=== PATIENT | female | born 1990 | race Caucasian/White ===

== ENCOUNTER 2016-09-17 19:11 | Emergency (ER) | payer MEDICAID ==
[~2016-09-17] VITALS: Ht 157.5 cm; Wt 64.4 kg
[2016-09-17] MEDS ORDERED: IV NS 0.9% 1,000 ML BAG IV ONE (20:00)
[2016-09-17] MEDS ORDERED: IV NS 0.9% 1,000 ML ONE (20:02)
[2016-09-17] MEDS ORDERED: IV SET PRIMARY 1 EA INFUS.SET MC ONE ×2 (20:02→20:09)
[2016-09-17 20:07] LABS: BASOPHILS % (AUTO) 0.2 % (0.0-2.0); EOSINOPHILS # (AUTO) 0.3 /CMM (0.0-0.7); EOSINOPHILS % (AUTO) 2.1 % (0.0-6.0); HEMATOCRIT 41 % (33-45); HEMOGLOBIN 13.7 g/dL (11.5-14.8); LYMPHOCYTES # (AUTO) 2.9 /CMM (0.8-4.8); LYMPHOCYTES % (AUTO) 20.7 % (20.0-44.0); MEAN CORPUSCULAR HEMOGLOBIN 29 PG (26.0-33.0); MEAN CORPUSCULAR HGB CONC 34 g/dl (31.0-36.0); MEAN CORPUSCULAR VOLUME 86 fL (82-100); MONOCYTES # (AUTO) 0.9 /CMM (0.1-1.30); MONOCYTES % (AUTO) 6.6 % (2.0-12.0); NEUTROPHILS # (AUTO) 10.1 /CMM (1.8-8.9); NEUTROPHILS % (AUTO) 70.4 % (43.0-81.0); PLATELET COUNT (AUTO) 251 /CMM (150-450); RDW COEFFICIENT OF VARIATION 12.1 (11.5-15.0); RED BLOOD CELL COUNT(AUTO) 4.73 MIL/uL (4.0-5.2); WHITE BLOOD COUNT (AUTO) 14.2 K/uL (4.3-11.0)
[2016-09-17] MEDS ORDERED: CEFTRIAXONE 1GM BAG (ER ONLY) 50 ML IV ONE (20:09)
[2016-09-17 20:17] LABS: CALCIUM, SERUM 9.3 mg/dL (8.5-10.1); CREATININE 0.6 mg/dL (0.6-1.3); POTASSIUM 3.3 mmol/L (3.5-5.1)
[2016-09-17 20:18] LABS: APPEARANCE,URINE CLEAR (CLEAR); BILIRUBIN,URINE NEGATIVE (NEGATIVE); BLOOD, URINE TRACE Ery/uL (NEGATIVE); KETONES,URINE NEGATIVE (NEGATIVE); LEUKOCYTE ESTERASE ,URINE NEGATIVE (NEGATIVE); NITRITE, URINE NEGATIVE (NEGATIVE); PH,URINE 6.5 (5.0-8.0); PROTEIN,URINE NEGATIVE (NEGATIVE); UGLUCOSE NEGATIVE (NEGATIVE); UROBILINOGEN,URINE 0.2 EU/dL (0.2)
[2016-09-17 20:20] LABS: COLOR,URINE STRAW (YELLOW)
[2016-09-17 20:21] LABS: PREGNANCY TEST URINE QUAL NEGATIVE (NEGATIVE)
[2016-09-17 20:24] LABS: ADD URINE CULTURE NO; BACTERIA,URINE None seen /HPF (None Seen); RBC,URINE 0-2 /HPF (0-2); SQUAMOUS EPITHELIAL CELL,UR Few /HPF (None Seen); WBC,URINE NONE SEEN /HPF (0-3)
[2016-09-17 20:29] LABS: BILIRUBIN,DIRECT 0.1 mg/dL (0.0-0.2); BILIRUBIN,TOTAL 0.4 mg/dL (0.2-1.0); TOTAL PROTEIN, SERUM 8.1 g/dL (6.4-8.2)
[2016-09-17] MEDS ORDERED: CEFTRIAXONE 1GM BAG (ER ONLY) 1 GM/50 ML PIGGYBACK IV ONE (20:30)
[2016-09-17] MEDS ORDERED: ACETAMINOPHEN ES 500 MG TABLET PO ONE (21:00)
[2016-09-17] MEDS ORDERED: ONDANSETRON HCL/PF 4 MG/2 ML VIAL IV ONE (21:00)
--- NOTE | 2016-09-17 21:00 | NUR ---
PT LEFT FOR CT VIA WC.
[2016-09-17] MEDS ORDERED: ACETAMINOPHEN ES 500 MG TABLET ONE (21:25)
[2016-09-17] MEDS ORDERED: ONDANSETRON HCL/PF 4 MG/2 ML VIAL ONE (21:25)
--- NOTE | 2016-09-17 21:25 | NUR ---
PT RETURNED FROM CT.
--- NOTE | 2016-09-17 21:58 | NUR ---
ESTEBAN US TECH AT THE BEDSIDE.
--- NOTE | 2016-09-17 23:09 | NUR ---
IV removed. Catheter intact and site benign. Pressure and 4x4 applied to site. No bleeding noted.Patient discharged to home in stable condition. Written and verbal after care instructions given. Patient verbalizes understanding of instruction. PT TO F/U WITH SECRETARY OF STATE FOR REPEAT US. VSS. PT AMBULATED OUT WITH A STEADY GAIT.
[2016-09-17 23:11] VITALS: BP 104/60
== END 2016-09-17 23:00 | disposition home or self-care (01) ==
LOC: ER 19:14
DX: N12 Tubulo-interstitial nephritis, not specified as acute or chronic (principal)
CPT/HCPCS: 36415; 74176; 76856; 80048; 80076; 81001; 83690; 84443; 84703; 85025; 93005; 96365; 96375; 99285; A4606; J0696; J2405; J7030; Z7610; 81000-TC; 87086-TC

== ENCOUNTER 2017-02-25 19:43 | Emergency (ER) | payer MEDICAID ==
[~2017-02-25] VITALS: Ht 157.5 cm; Wt 63.5 kg
--- NOTE | 2017-02-25 23:37 | NUR ---
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 AOx4 w/ resp even & unlabored, denies any sob, no active N/V at this time w/ nad noted. Pending further elisha taylor MD. Urine sample obtained & sent to lab.
--- NOTE | 2017-02-25 23:41 | NUR ---
Dominick, PRODUCT DEVELOPMENT CHEMIST at bedside for further eval.
--- NOTE | 2017-02-26 00:01 | NUR ---
GUERITA AT BEDSIDE FOR BLOOD DRAW.
[2017-02-26 00:07] LABS: BASOPHILS % (AUTO) 0.1 % (0.0-2.0); EOSINOPHILS # (AUTO) 0.2 /CMM (0.0-0.7); EOSINOPHILS % (AUTO) 2.1 % (0.0-6.0); HEMATOCRIT 41 % (33-45); HEMOGLOBIN 13.5 g/dL (11.5-14.8); LYMPHOCYTES # (AUTO) 2.5 /CMM (0.8-4.8); LYMPHOCYTES % (AUTO) 23.9 % (20.0-44.0); MEAN CORPUSCULAR HEMOGLOBIN 28 PG (26.0-33.0); MEAN CORPUSCULAR HGB CONC 33 g/dl (31.0-36.0); MEAN CORPUSCULAR VOLUME 86 fL (82-100); MONOCYTES # (AUTO) 0.8 /CMM (0.1-1.30); MONOCYTES % (AUTO) 7.6 % (2.0-12.0); NEUTROPHILS # (AUTO) 6.9 /CMM (1.8-8.9); NEUTROPHILS % (AUTO) 66.3 % (43.0-81.0); PLATELET COUNT (AUTO) 209 /CMM (150-450); RDW COEFFICIENT OF VARIATION 13.4 (11.5-15.0); RED BLOOD CELL COUNT(AUTO) 4.76 MIL/uL (4.0-5.2); WHITE BLOOD COUNT (AUTO) 10.4 K/uL (4.3-11.0)
[2017-02-26 00:11] LABS: APPEARANCE,URINE CLEAR (CLEAR); BILIRUBIN,URINE NEGATIVE (NEGATIVE); BLOOD, URINE 1+ Ery/uL (NEGATIVE); COLOR,URINE YELLOW (YELLOW); KETONES,URINE NEGATIVE (NEGATIVE); LEUKOCYTE ESTERASE ,URINE NEGATIVE (NEGATIVE); NITRITE, URINE NEGATIVE (NEGATIVE); PROTEIN,URINE NEGATIVE (NEGATIVE); UGLUCOSE NEGATIVE (NEGATIVE); UROBILINOGEN,URINE 0.2 EU/dL (0.2)
[2017-02-26 00:20] LABS: BACTERIA,URINE None seen /HPF (None Seen); RBC,URINE 0-2 /HPF (0-2); SQUAMOUS EPITHELIAL CELL,UR Moderate /HPF (None Seen); WBC,URINE 0-2 /HPF (0-3)
[2017-02-26 00:23] LABS: CALCIUM, SERUM 9.4 mg/dL (8.5-10.1); CREATININE 0.5 mg/dL (0.6-1.3); POTASSIUM 3.7 mmol/L (3.5-5.1)
[2017-02-26 00:28] LABS: ALBUMIN 3.9 g/dL (3.4-5.0); BILIRUBIN,DIRECT 0.1 mg/dL (0.0-0.2); BILIRUBIN,TOTAL 0.3 mg/dL (0.2-1.0); TOTAL PROTEIN, SERUM 7.7 g/dL (6.4-8.2)
--- NOTE | 2017-02-26 01:28 | NUR ---
US TECH AT BEDSIDE FOR US ABD PELVIC.
[2017-02-26 03:22] VITALS: BP 127/88
--- NOTE | 2017-02-26 03:22 | NUR ---
Patient discharged to home in stable condition. Written and verbal after care instructions given. Patient verbalizes understanding of instruction.
== END 2017-02-26 03:22 | disposition home or self-care (01) ==
LOC: ER 19:47
DX: N83.201 Unspecified ovarian cyst, right side (principal); Z88.0 Allergy status to penicillin
CPT/HCPCS: 36415; 76705; 76856; 80048; 80076; 81001; 83690; 84703; 85025; 99285; A4606; Z7610; 81000-TC

== ENCOUNTER 2017-06-23 21:54 | Emergency (ER) | payer MEDICAID, OTHER ==
[~2017-06-23] VITALS: Ht 165.1 cm; Wt 59.0 kg
--- NOTE | 2017-06-23 22:09 | NUR ---
PT BIB [facility] WITH A C/O HEADACHE AT THE BACK OF HEAD/OCCIPITAL LOBE AREA RADIATING TO TOP OF HEAD AND DOWN THE RIGHT SIDE OF FACE. PT IS AA&O X4. PT WAS TRIAGED AND TAKEN TO BED #12. PT APPEARS ANXIOUS AND IS REQUESTING WATER. PT IS AWAITING EVAL BY .
--- NOTE | 2017-06-23 22:17 | NUR ---
URINE SAMPLE OBTAINED.
--- NOTE | 2017-06-23 22:19 | NUR ---
CAMMY ADHIKARI IS AT THE BEDSIDE.
[2017-06-23] MEDS ORDERED: PROCHLORPERAZINE EDISYLATE 10 MG/2 ML VIAL ONE (22:46)
[2017-06-23] MEDS ORDERED: diphenhydrAMINE HCL 50 MG/ML VIAL ONE (22:46)
[2017-06-23] MEDS ORDERED: HYDROMORPHONE INJ 0.5 MG/0.5 ML SYRINGE ONE (22:46)
[2017-06-23] MEDS ORDERED: IV NS 0.9% 1,000 ML BAG IV ONE (23:00)
[2017-06-23] MEDS ORDERED: PROCHLORPERAZINE EDISYLATE 10 MG/2 ML VIAL IV ONE (23:00)
[2017-06-23] MEDS ORDERED: diphenhydrAMINE HCL 50 MG/ML VIAL IV ONE (23:00)
[2017-06-23] MEDS ORDERED: HYDROMORPHONE INJ 2 MG/ML DISP.SYRIN IV ONE (23:00)
[2017-06-24] MEDS ORDERED: KETOROLAC TROMETHAMINE INJ 30 MG/ML VIAL IV ONE
[2017-06-24] MEDS ORDERED: KETOROLAC TROMETHAMINE INJ 30 MG/ML VIAL ONE (00:03)
--- NOTE | 2017-06-24 00:04 | NUR ---
BLOOD DRAW AT THE BEDSIDE BY MICHELLE BODY SHOP TECHNICIAN.
[2017-06-24 00:28] LABS: BASOPHILS % (AUTO) 0.1 % (0.0-2.0); EOSINOPHILS % (AUTO) 0.1 % (0.0-6.0); HEMATOCRIT 38 % (33-45); HEMOGLOBIN 12.5 g/dL (11.5-14.8); LYMPHOCYTES # (AUTO) 1.2 /CMM (0.8-4.8); LYMPHOCYTES % (AUTO) 10.6 % (20.0-44.0); MEAN CORPUSCULAR HEMOGLOBIN 29 PG (26.0-33.0); MEAN CORPUSCULAR HGB CONC 33 g/dl (31.0-36.0); MEAN CORPUSCULAR VOLUME 88 fL (82-100); MONOCYTES # (AUTO) 0.4 /CMM (0.1-1.30); MONOCYTES % (AUTO) 3.3 % (2.0-12.0); NEUTROPHILS # (AUTO) 9.8 /CMM (1.8-8.9); NEUTROPHILS % (AUTO) 85.9 % (43.0-81.0); PLATELET COUNT (AUTO) 206 /CMM (150-450); RDW COEFFICIENT OF VARIATION 13.3 (11.5-15.0); RED BLOOD CELL COUNT(AUTO) 4.28 MIL/uL (4.0-5.2); WHITE BLOOD COUNT (AUTO) 11.4 K/uL (4.3-11.0)
[2017-06-24 00:30] LABS: APPEARANCE,URINE CLEAR (CLEAR); BILIRUBIN,URINE NEGATIVE (NEGATIVE); BLOOD, URINE 1+ Ery/uL (NEGATIVE); KETONES,URINE NEGATIVE (NEGATIVE); LEUKOCYTE ESTERASE ,URINE NEGATIVE (NEGATIVE); NITRITE, URINE NEGATIVE (NEGATIVE); PH,URINE 6.5 (5.0-8.0); PROTEIN,URINE NEGATIVE (NEGATIVE); UGLUCOSE NEGATIVE (NEGATIVE); UROBILINOGEN,URINE 0.2 EU/dL (0.2)
[2017-06-24 00:36] LABS: COLOR,URINE Light yellow (YELLOW)
[2017-06-24 00:37] LABS: BACTERIA,URINE None seen /HPF (None Seen); SQUAMOUS EPITHELIAL CELL,UR Rare /HPF (None Seen); WBC,URINE 0-2 /HPF (0-3)
[2017-06-24 00:39] LABS: CALCIUM, SERUM 8.7 mg/dL (8.5-10.1); CREATININE 0.7 mg/dL (0.6-1.3)
--- NOTE | 2017-06-24 00:39 | NUR ---
PT APPEARS TO BE RESTING COMFORTABLY WITH NO S/S OF PAIN OR DISTRESS.
[2017-06-24 00:52] LABS: ALBUMIN 3.7 g/dL (3.4-5.0); BILIRUBIN,DIRECT 0.1 mg/dL (0.0-0.2); BILIRUBIN,TOTAL 0.3 mg/dL (0.2-1.0); TOTAL PROTEIN, SERUM 7.4 g/dL (6.4-8.2)
[2017-06-24] MEDS ORDERED: DIAZEPAM 10 MG TABLET PO ONE (01:00)
[2017-06-24] MEDS ORDERED: methylPREDNISolone SOD SUCC 125 MG/2ML VIAL IV ONE (01:00)
[2017-06-24] MEDS ORDERED: DIAZEPAM 10 MG TABLET ONE (01:09)
[2017-06-24] MEDS ORDERED: methylPREDNISolone SOD SUCC 125 MG/2ML VIAL ONE (01:09)
--- NOTE | 2017-06-24 01:13 | NUR ---
CAMMY OLVERA AT THE BEDSIDE. PT REC'D MEDICATION ORDERED.
--- NOTE | 2017-06-24 01:28 | NUR ---
PT STATED THAT SHE IS FEELING BETTER. PT ALSO STATED THAT SHE HAD TO USE THE BATHROOM. PT WAS DISCONNECTED FROM THE MONITOR AND CONTINUOUS PULSE OX. PT AMBULATED WITH ASSISTANCE AND A SLOW GAIT TO THE BATHROOM.
--- NOTE | 2017-06-24 01:34 | NUR ---
CAMMY OLVERA WAS NOTIFIED THAT THE PT FELT BETTER.
--- NOTE | 2017-06-24 01:34 | NUR ---
PT AMBULATED FROM THE BATHROOM TO BED #12 AND WAS RECONNECTED TO THE MONITOR AND CONTINUOUS PULSE OX.
--- NOTE | 2017-06-24 01:36 | NUR ---
CAMMY ADHIKARI IS AT THE BEDSIDE SPEAKING TO THE PT AND HER .
--- NOTE | 2017-06-24 01:50 | NUR ---
IV removed. Catheter intact and site benign. Pressure and 4x4 applied to site. No bleeding noted.Patient discharged to home in stable condition. Written and verbal after care instructions given. Patient verbalizes understanding of instruction AND RX. PT AMBULATED OUT WITH A SLOW STEADY GAIT. PT'S IS DRIVING PT HOME. VSS. NAD NOTED.
[2017-06-24 01:51] VITALS: BP 113/62
== END 2017-06-24 01:52 | disposition home or self-care (01) ==
LOC: ER 21:58
DX: R51 Headache (principal); Z88.0 Allergy status to penicillin; Z60.2 Problems related to living alone
CPT/HCPCS: 36415; 80048-TC; 80076-TC; 81000-TC; 84703-TC; 85025-TC; 85730-TC; A4606; J0780; J1200; J1885; J2930; J7030; Z7610

== ENCOUNTER 2017-08-20 12:30 | Emergency (ER) | payer OTHER ==
[~2017-08-20] VITALS: Ht 157.5 cm; Wt 65.8 kg
--- NOTE | 2017-08-20 12:45 | NUR ---
PT CAME IN WITH C/O NAUSEA, VOMITING, DIZZINESS, HEADACHE (L SIDE) SINCE 0800AM. REPORTS THAT SHE NORMALLY FEELS THIS WHEN HER BP IS HIGH. SEEN BY PA FOR EVAL. PARTNER REMAINS AT BS. VSS. SAFETY AND COMFORT MEASURES PROVIDED. WILL MONITOR.
[2017-08-20 13:06] LABS: APPEARANCE,URINE CLEAR (CLEAR); BILIRUBIN,URINE NEGATIVE (NEGATIVE); BLOOD, URINE 3+ Ery/uL (NEGATIVE); COLOR,URINE YELLOW (YELLOW); KETONES,URINE NEGATIVE (NEGATIVE); LEUKOCYTE ESTERASE ,URINE 2+ (NEGATIVE); NITRITE, URINE NEGATIVE (NEGATIVE); PH,URINE 7.5 (5.0-8.0); PROTEIN,URINE NEGATIVE (NEGATIVE); UGLUCOSE NEGATIVE (NEGATIVE); UROBILINOGEN,URINE 0.2 EU/dL (0.2)
--- NOTE | 2017-08-20 13:10 | NUR ---
IV ACCESS STARTED. MEDICATED ORDERED.
[2017-08-20] MEDS ORDERED: MECLIZINE HCL 25 MG TABLET ONE (13:29)
[2017-08-20] MEDS ORDERED: KETOROLAC TROMETHAMINE INJ 30 MG/ML VIAL ONE (13:29)
[2017-08-20] MEDS ORDERED: ONDANSETRON HCL/PF 4 MG/2 ML VIAL ONE (13:29)
[2017-08-20] MEDS: IV NS 0.9% 1,000 ML BAG IV ONE (13:30)
[2017-08-20] MEDS: KETOROLAC TROMETHAMINE INJ 30 MG/ML VIAL IV ONE (13:32)
[2017-08-20] MEDS: ONDANSETRON HCL/PF - ER 4 MG/2 ML VIAL IV ONE (13:34)
[2017-08-20] MEDS: MECLIZINE HCL 25 MG TABLET PO ONE (13:41)
[2017-08-20 13:55] LABS: BACTERIA,URINE Moderate /HPF (None Seen); RBC,URINE 0-3 /HPF (0-2); SQUAMOUS EPITHELIAL CELL,UR Many /HPF (None Seen)
--- NOTE | 2017-08-20 15:00 | NUR ---
IV removed. Catheter intact and site benign. Pressure and 4x4 applied to site. No bleeding noted.
--- NOTE | 2017-08-20 15:11 | NUR ---
Patient discharged to home in stable condition. Written and verbal after care instructions given. Patient verbalizes understanding of instruction.
[2017-08-20 15:12] VITALS: BP 135/77
== END 2017-08-20 15:12 | disposition home or self-care (01) ==
LOC: ER 12:31
DX: R42 Dizziness and giddiness (principal); R51 Headache; R11.2 Nausea with vomiting, unspecified; H53.8 Other visual disturbances; Z88.0 Allergy status to penicillin; Z60.2 Problems related to living alone
CPT/HCPCS: 81000-TC; 84703-TC; 87086-TC; A4606; J1885; J2405; J7030; J8597; Z7610

== ENCOUNTER 2017-09-10 13:01 | Emergency (ER) | payer OTHER ==
[~2017-09-10] VITALS: Ht 157.5 cm; Wt 64.4 kg
--- NOTE | 2017-09-10 13:10 | NUR ---
EPIGASTRIC PAIN SINCE YESTERDAY, NAD NOTED, VSS, RESP EVEN AND UNLABORED, PT WAS PUT ON MONITOR, WAITING FOR MD SANDHU.
[2017-09-10] MEDS ORDERED: ONDANSETRON 4 MG TAB.RAPDIS ONE (13:50)
[2017-09-10] MEDS ORDERED: ONDANSETRON 4 MG TAB.RAPDIS SL ONE (14:00)
[2017-09-10 14:03] LABS: BASOPHILS % (AUTO) 0.3 % (0.0-2.0); EOSINOPHILS % (AUTO) 0.8 % (0.0-6.0); HEMATOCRIT 40 % (33-45); HEMOGLOBIN 13.8 g/dL (11.5-14.8); LYMPHOCYTES # (AUTO) 1.9 /CMM (0.8-4.8); LYMPHOCYTES % (AUTO) 17.6 % (20.0-44.0); MEAN CORPUSCULAR HGB CONC 35 g/dl (31.0-36.0); MEAN CORPUSCULAR VOLUME 85 fL (82-100); MONOCYTES # (AUTO) 0.6 /CMM (0.1-1.30); MONOCYTES % (AUTO) 5.4 % (2.0-12.0); NEUTROPHILS # (AUTO) 8.2 /CMM (1.8-8.9); NEUTROPHILS % (AUTO) 75.9 % (43.0-81.0); PLATELET COUNT (AUTO) 221 /CMM (150-450); RDW COEFFICIENT OF VARIATION 12.1 (11.5-15.0); RED BLOOD CELL COUNT(AUTO) 4.66 MIL/uL (4.0-5.2); WHITE BLOOD COUNT (AUTO) 10.8 K/uL (4.3-11.0)
[2017-09-10 14:15] LABS: CALCIUM, SERUM 9.3 mg/dL (8.5-10.1); CREATININE 0.7 mg/dL (0.6-1.3); POTASSIUM 3.9 mmol/L (3.5-5.1)
[2017-09-10 14:20] LABS: ALBUMIN 3.9 g/dL (3.4-5.0); BILIRUBIN,DIRECT 0.1 mg/dL (0.0-0.2); BILIRUBIN,TOTAL 0.4 mg/dL (0.2-1.0)
[2017-09-10] MEDS ORDERED: ACETAMINOPHEN ES 500 MG TABLET ONE (15:41)
[2017-09-10 15:51] VITALS: BP 127/80
--- NOTE | 2017-09-10 15:51 | NUR ---
Patient discharged to home in stable condition. Written and verbal after care instructions given. Patient verbalizes understanding of instruction. Prescription given.
[2017-09-10] MEDS ORDERED: ACETAMINOPHEN 325 MG TABLET PO ONE (16:00)
== END 2017-09-10 15:52 | disposition home or self-care (01) ==
LOC: ER 13:08
DX: R10.13 Epigastric pain (principal); R11.0 Nausea; Z88.0 Allergy status to penicillin; Z60.2 Problems related to living alone
CPT/HCPCS: 36415; 76705-TC; 80048-TC; 80076-TC; 83690-TC; 85025-TC; A4606; Q0162; Z7610

== ENCOUNTER 2017-10-04 18:52 | Emergency (ER) | payer OTHER ==
[~2017-10-04] VITALS: Ht 157.5 cm; Wt 63.5 kg
--- NOTE | 2017-10-04 19:00 | NUR ---
27 YO FEMALE, C/O PALPIATAIONS/ CHEST PRESSURE X 30 MIN. PATIENT DENIES SOB, N/V/DIARRHEA. PATIENT AMBULATED TO ER BED WITH STEADY AGAIT. 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 SKIN WARM AND DRY, RESP EVEN AND UNLABORED. AWAITING ORDERS FROM PROVIDER, WILL CONTINUE TO MONITOR
[2017-10-04] MEDS ORDERED: LORAZEPAM 1 MG TABLET PO ONE (20:00)
[2017-10-04] MEDS ORDERED: ACETAMINOPHEN 325 MG TABLET PO ONE (20:00)
[2017-10-04] MEDS ORDERED: ASPIRIN 81 MG TAB.CHEW PO ONE (20:00)
[2017-10-04] MEDS ORDERED: LORAZEPAM 1 MG TABLET ONE (20:03)
[2017-10-04] MEDS ORDERED: ACETAMINOPHEN ES 500 MG TABLET ONE (20:04)
[2017-10-04] MEDS ORDERED: ASPIRIN 81 MG TAB.CHEW ONE (20:04)
[2017-10-04 20:25] LABS: BASOPHILS % (AUTO) 0.1 % (0.0-2.0); HEMATOCRIT 38 % (33-45); HEMOGLOBIN 13.1 g/dL (11.5-14.8); LYMPHOCYTES # (AUTO) 1.6 /CMM (0.8-4.8); LYMPHOCYTES % (AUTO) 14.4 % (20.0-44.0); MEAN CORPUSCULAR HGB CONC 35 g/dl (31.0-36.0); MEAN CORPUSCULAR VOLUME 86 fL (82-100); MONOCYTES # (AUTO) 0.6 /CMM (0.1-1.30); MONOCYTES % (AUTO) 5.3 % (2.0-12.0); NEUTROPHILS # (AUTO) 8.8 /CMM (1.8-8.9); NEUTROPHILS % (AUTO) 79.2 % (43.0-81.0); PLATELET COUNT (AUTO) 205 /CMM (150-450); RED BLOOD CELL COUNT(AUTO) 4.44 MIL/uL (4.0-5.2); WHITE BLOOD COUNT (AUTO) 11.1 K/uL (4.3-11.0)
[2017-10-04 20:31] LABS: CALCIUM, SERUM 9.1 mg/dL (8.5-10.1); CARBON DIOXIDE 24 mmol/L (21-32); CHLORIDE 102 mmol/L (98-107); CREATININE 0.7 mg/dL (0.6-1.3); GLUCOSE 124 mg/dL (74-106); POTASSIUM 3.4 mmol/L (3.5-5.1); SODIUM SERUM 139 mmol/L (136-145); UREA NITROGEN, BLOOD 11 mg/dL (7-18)
[2017-10-04 20:49] LABS: TROPONIN I < 0.017 ng/mL (0.00-0.056)
[2017-10-04] MEDS ORDERED: POTASSIUM CHLORIDE 20 MEQ TAB.PRT.SR PO ONE ×2 (21:30→21:38)
[2017-10-04 22:47] VITALS: BP 129/82
--- NOTE | 2017-10-04 22:47 | NUR ---
Patient discharged to home in stable condition. Written and verbal after care instructions given. Patient verbalizes understanding of instruction. Prescription given.
== END 2017-10-04 22:48 | disposition home or self-care (01) ==
LOC: ER 18:53
DX: R00.0 Tachycardia, unspecified (principal); E87.6 Hypokalemia; Z88.0 Allergy status to penicillin; Z60.2 Problems related to living alone
CPT/HCPCS: 36415; 71045-TC; 80048-TC; 84484-TC; 85025-TC; 85378-TC; A4606; Z7610